=== PATIENT | female | born 1945 | race Caucasian/White ===

== ENCOUNTER 2016-05-11 17:09 | Emergency (ER) | payer OTHER ==
[~2016-05-11] VITALS: Ht 165.1 cm; Wt 70.0 kg
[~2016-05-11 17:09] MED LIST: AMLO5TAB22 PO; ASPI81TA82 PO; CYAN1000P IM; IBUP800T23 PO; LIDO2GEL12 TOP; NEUR600T PO; PENT400 PO; PERC10TA27 PO; PLAV75TA PO; RANI150T PO; REST30CA PO; SIMV1TAB76 PO; UNKNOWN MEDS; [UNRECOGNIZED DRUG - SUPPLY] XX
[2016-05-11 18:05] VITALS: BP_SYST 107; BP_SYST 190; BP_DIAS 62; BP_DIAS 88; PULSE 108; RESP 16; TEMP 97.3; O2SAT 97
--- NOTE | 2016-05-11 18:17 | PD ---
HPI Chief Complaint: Syncope Time Seen by Provider: 18:17 Travel History International Travel<30 days: No Contact w/Intl Traveler<30days: No Traveled to known affect area: No History of Present Illness HPI 70-year-old female presents the emergency department with near syncopal event with onset nausea, vomiting, uncontrolled diarrhea. Patient is noted to have generalized erythematous rash as well. Patient states no difficulty swallowing or breathing. She denies chest discomfort or wheezing. Patient does state that she had a banana with peanut butter and chocolate whip approximately one hour prior to the symptoms starting. Patient has no history of previous food allergy in the past. Patient has chills at this time but denies fever. She has no headache sore throat or other symptoms. Patient is known to take Plavix for circulatory issues in the lower extremities within arterial stent in the left. She has no known drug allergies. PFSH Past Medical History High Cholesterol: Yes Hypertension: Yes Social History Alcohol Use: Yes Tobacco Use: Yes Substance Use: No Allergies-Medications (Allergen,Severity, Reaction): Coded Allergies: No Known Allergies (Unverified , 08/27/15) Reported Meds & Prescriptions Reported Meds & Active Scripts Active Reported Zocor (Simvastatin) 5 Mg Tab 5 Mg PO DAILY Aspirin 81 (Aspirin) 81 Mg Tabdr 81 Mg PO DAILY Amlodipine (Amlodipine Besylate) 10 Mg Tab 10 Mg PO DAILY Plavix (Clopidogrel Bisulfate) 75 Mg Tab 75 Mg PO DAILY Review of Systems Except as stated in HPI: all other systems reviewed are Neg General / Constitutional: Positive: Chills, No: Fever Eyes: No: Visual changes HENT: No: Headaches, Sore Throat, Rhinitis, Rhinorrhea, Congestion, Neck Stiffness, Neck Pain, Earache Cardiovascular: No: Chest Pain or Discomfort Respiratory: No: Shortness of Breath Gastrointestinal: Positive: Nausea, Vomiting, Diarrhea, No: Abdominal Pain, Hematemesis, Hematochezia, Constipation, Changes in Bowel Habits, Loss of Appetite Genitourinary: No: Dysuria Musculoskeletal: No: Pain Skin: Positive Rash, No Itching Neurologic: No: Weakness Psychiatric: No: Depression Endocrine: No: Polydipsia Hematologic/Lymphatic: No: Easy Bruising Physical Exam Narrative GENERAL: Patient appears in moderate distress SKIN: Warm and dry. Patient has generalized erythematous flushing without hives consistent with allergic reaction. Patient is to have a large bruise to the right upper arm which she states is due to her Plavix HEAD: Atraumatic. Normocephalic. EYES: Pupils equal and round. No scleral icterus. No injection or drainage. ENT: No nasal bleeding or discharge. Mucous membranes pink and moist. Pharynx appears normal with no swelling. Airway is patent. NECK: Trachea midline. No JVD. Supple and nontender. CARDIOVASCULAR: Regular rate and rhythm. RESPIRATORY: No accessory muscle use. Clear to auscultation. Breath sounds equal bilaterally. GASTROINTESTINAL: Abdomen soft, mild nonspecific tenderness, nondistended. Bowel sounds are present in all quadrants and somewhat hyperactive. Hepatic and splenic margins not palpable. No CVA tenderness. MUSCULOSKELETAL: Extremities without clubbing, cyanosis, or edema. No obvious deformities. NEUROLOGICAL: Awake and alert. No obvious cranial nerve deficits. Motor grossly within normal limits. Five out of 5 muscle strength in the arms and legs. Normal speech. PSYCHIATRIC: Appropriate mood and affect; insight and judgment normal. Data Data Last Documented VS Vital Signs Date Time Temp Pulse Resp B/P Pulse Ox O2 Delivery O2 Flow Rate FiO2 05/11/16 19:43 96 16 160/67 96 Room Air 05/11/16 18:05 97.3 Orders Complete Blood Count With Diff (05/11/16 18:33) Comprehensive Metabolic Panel (05/11/16 18:33) Lipase (05/11/16 18:33) Prothrombin Time / Inr (Pt) (05/11/16 18:33) Act Partial Throm Time (Ptt) (05/11/16 18:33) Urinalysis - C+S If Indicated (05/11/16 18:33) Abdomen, Flat & Upright (05/11/16 ) Iv Access Insert/Monitor (05/11/16 18:33) Ecg Monitoring (05/11/16 18:33) Oximetry (05/11/16 18:33) NPO (05/11/16 18:33) Ondansetron Inj (Zofran Inj) (05/11/16 18:45) Sodium Chlor 0.9% 1000 Ml Inj (Ns 1000 M (05/11/16 18:33) Sodium Chloride 0.9% Flush (Ns Flush) (05/11/16 18:45) Electrocardiogram (05/11/16 18:33) Famotidine Inj (Pepcid Inj) (05/11/16 18:45) Diphenhydramine Inj (Benadryl Inj) (05/11/16 18:45) Methylprednisolone So Succ Inj (Solumedr (05/11/16 19:30) Labs Laboratory Tests Test 05/11/16 18:35 White Blood Count 16.7 TH/MM3 Red Blood Count 4.44 MIL/MM3 Hemoglobin 12.6 GM/DL Hematocrit 37.9 % Mean Corpuscular Volume 85.3 FL Mean Corpuscular Hemoglobin 28.4 PG Mean Corpuscular Hemoglobin 33.3 % Concent Red Cell Distribution Width 13.1 % Platelet Count 272 TH/MM3 Mean Platelet Volume 8.0 FL Neutrophils (%) (Auto) 91.3 % Lymphocytes (%) (Auto) 6.7 % Monocytes (%) (Auto) 1.5 % Eosinophils (%) (Auto) 0.3 % Basophils (%) (Auto) 0.2 % Neutrophils # (Auto) 15.2 TH/MM3 Lymphocytes # (Auto) 1.1 TH/MM3 Monocytes # (Auto) 0.3 TH/MM3 Eosinophils # (Auto) 0.0 TH/MM3 Basophils # (Auto) 0.0 TH/MM3 CBC Comment DIFF FINAL Differential Comment Prothrombin Time 10.8 SEC Prothromb Time International 1.0 RATIO Ratio Activated Partial 27.8 SEC Thromboplast Time Sodium Level 139 MEQ/L Potassium Level 3.2 MEQ/L Chloride Level 105 MEQ/L Carbon Dioxide Level 24.9 MEQ/L Anion Gap 9 MEQ/L Blood Urea Nitrogen 27 MG/DL Creatinine 1.20 MG/DL Estimat Glomerular Filtration 44 ML/MIN Rate Random Glucose 161 MG/DL Calcium Level 8.8 MG/DL Total Bilirubin 0.4 MG/DL Aspartate Amino Transf 17 U/L (AST/SGOT) Alanine Aminotransferase 22 U/L (ALT/SGPT) Alkaline Phosphatase 91 U/L Total Protein 7.2 GM/DL Albumin 3.5 GM/DL Lipase 155 U/L [facility] Medical Decision Making Medical Screen Exam Complete: Yes Emergency Medical Condition: Yes Differential Diagnosis Acute nausea and vomiting. Allergic reaction. Histamine reaction. Narrative Course Patient is medically stable at time of exam. Labs ordered including CBC, CMP, PT PTT and INR. Patient is discussed with Dr. Najera sees the patient as well. IV access is obtained and the patient is given thousand and also normal saline bolus, 4 mg Zofran IV, 25 mg diphenhydramine IV, 20 mg Pepcid IV, and 125 mg Solu-Medrol. EKG shows a normal sinus rhythm. Abdominal x-ray showed no acute process per radiologist. Labs are unremarkable except for leukocytosis of 16.7, potassium is 3.2. BUN of 27 and creatinine of 1.20. 2050 hrs. patient is reassessed and felt to be much improved. Patient is given 40 mEq potassium by mouth. Patient will be discharged home on prednisone 20 mg twice a day 5 days. Patient also given Zantac 150 mg twice a day #20. Patient can also take Benadryl 25 mg every 6 hours when necessary. Patient is to rest and follow with her primary care physician as discussed. Diagnosis Primary Impression: Allergic reaction Qualified Code: T78.40XA - Allergic reaction, initial encounter Additional Impressions: Nausea and vomiting in adult Low serum potassium level Referrals: Primary Care Physician Patient Instructions: Acute Nausea and Vomiting (ED), General Allergic Reaction (ED), General Instructions Additional Instructions: 2050 hrs. patient is reassessed and felt to be much improved. Patient is given 40 mEq potassium by mouth. Patient will be discharged home on prednisone 20 mg twice a day 5 days. Patient also given Zantac 150 mg twice a day #20. Patient can also take Benadryl 25 mg every 6 hours when necessary. Patient is to rest and follow with her primary care physician as discussed. Med/Other Pt SpecificInfo: Prescription(s) given Disposition: DISCHARGE HOME Condition: Stable Baljinder Castillo May 11, 2016 18:17
[2016-05-11] MEDS ORDERED: PLAV75TA29 PO (18:23)
[2016-05-11] MEDS ORDERED: ZOCO5TAB PO (18:23)
[2016-05-11] MEDS ORDERED: ASPI-110 PO (18:23)
[2016-05-11] MEDS ORDERED: AMLO10TA2 PO (18:23)
[2016-05-11] MEDS ORDERED: SODIUM CHLOR 0.9% 1000 ML INJ 1,000 ML IV SCH (18:33)
[2016-05-11] MEDS ORDERED: SODIUM CHLORIDE 0.9% FLUSH 10 ML FLUSH IV FLUSH PRN (18:45)
[2016-05-11] MEDS ORDERED: diphenhydrAMINE HCL 50 MG/ML VIAL IV PUSH ONE (18:45)
[2016-05-11] MEDS ORDERED: FAMOTIDINE 20 MG/2 ML VIAL IV PUSH ONE (18:45)
[2016-05-11] MEDS ORDERED: ONDANSETRON HCL 4 MG/2 ML VIAL IVP ONE (18:45)
[2016-05-11 19:00] LABS: AUTOMATED NEUTROPHIL # 15.2 TH/MM3 (1.8-7.7); BASOPHIL % 0.2 % (0.0-2.0); EOSINOPHIL % 0.3 % (0.0-4.0); HEMATOCRIT 37.9 % (35.0-46.0); HEMO FLAGS DIFF FINAL; LYMPH % 6.7 % (9.0-44.0); LYMPHOCYTE # 1.1 TH/MM3 (1.0-4.8); MEAN CELL VOLUME 85.3 FL (80.0-100.0); MEAN CORPUSCULAR HEMOGLOBIN 28.4 PG (27.0-34.0); MEAN CORPUSCULAR HGB CONC 33.3 % (32.0-36.0); MONO % 1.5 % (0.0-8.0); NEUT % 91.3 % (16.0-70.0); PLATELET COUNT 272 TH/MM3 (150-450); RED BLOOD COUNT 4.44 MIL/MM3 (4.00-5.30); RED CELL DISTRIBUTION WIDTH 13.1 % (11.6-17.2); WHITE BLOOD COUNT 16.7 TH/MM3 (4.0-11.0)
[2016-05-11 19:17] LABS: APTT (PATIENT) 27.8 SEC (24.3-30.1); PROTHROMBIN TIME - PATIENT 10.8 SEC (9.8-11.6)
[2016-05-11 19:21] LABS: ANION GAP 9 MEQ/L (5-15); AST (GOT) 17 U/L (15-37); BICARBONATE 24.9 MEQ/L (21.0-32.0); BLOOD UREA NITROGEN 27 MG/DL (7-18); CHLORIDE 105 MEQ/L (98-107); GLOMERULAR FILTRATION RATE 44 ML/MIN (>89); POTASSIUM 3.2 MEQ/L (3.5-5.1); SODIUM (NA) 139 MEQ/L (136-145)
--- NOTE | 2016-05-11 19:23 | PD ---
Physical Exam Narrative Patient was seen and examined with my assistant teacher. Data Data Last Documented VS Vital Signs Date Time Temp Pulse Resp B/P Pulse Ox O2 Delivery O2 Flow Rate FiO2 05/11/16 18:05 97.3 108 16 190/88 97 Orders Complete Blood Count With Diff (05/11/16 18:33) Comprehensive Metabolic Panel (05/11/16 18:33) Lipase (05/11/16 18:33) Prothrombin Time / Inr (Pt) (05/11/16 18:33) Act Partial Throm Time (Ptt) (05/11/16 18:33) Urinalysis - C+S If Indicated (05/11/16 18:33) Abdomen, Flat & Upright (05/11/16 ) Iv Access Insert/Monitor (05/11/16 18:33) Ecg Monitoring (05/11/16 18:33) Oximetry (05/11/16 18:33) NPO (05/11/16 18:33) Ondansetron Inj (Zofran Inj) (05/11/16 18:45) Sodium Chlor 0.9% 1000 Ml Inj (Ns 1000 M (05/11/16 18:33) Sodium Chloride 0.9% Flush (Ns Flush) (05/11/16 18:45) Electrocardiogram (05/11/16 18:33) Famotidine Inj (Pepcid Inj) (05/11/16 18:45) Diphenhydramine Inj (Benadryl Inj) (05/11/16 18:45) Methylprednisolone So Succ Inj (Solumedr (05/11/16 19:30) Labs Laboratory Tests Test 05/11/16 18:35 White Blood Count 16.7 TH/MM3 Red Blood Count 4.44 MIL/MM3 Hemoglobin 12.6 GM/DL Hematocrit 37.9 % Mean Corpuscular Volume 85.3 FL Mean Corpuscular Hemoglobin 28.4 PG Mean Corpuscular Hemoglobin 33.3 % Concent Red Cell Distribution Width 13.1 % Platelet Count 272 TH/MM3 Mean Platelet Volume 8.0 FL Neutrophils (%) (Auto) 91.3 % Lymphocytes (%) (Auto) 6.7 % Monocytes (%) (Auto) 1.5 % Eosinophils (%) (Auto) 0.3 % Basophils (%) (Auto) 0.2 % Neutrophils # (Auto) 15.2 TH/MM3 Lymphocytes # (Auto) 1.1 TH/MM3 Monocytes # (Auto) 0.3 TH/MM3 Eosinophils # (Auto) 0.0 TH/MM3 Basophils # (Auto) 0.0 TH/MM3 CBC Comment DIFF FINAL Differential Comment Prothrombin Time 10.8 SEC Prothromb Time International 1.0 RATIO Ratio Activated Partial 27.8 SEC Thromboplast Time Sodium Level 139 MEQ/L Potassium Level 3.2 MEQ/L Chloride Level 105 MEQ/L Carbon Dioxide Level 24.9 MEQ/L Anion Gap 9 MEQ/L Blood Urea Nitrogen 27 MG/DL Creatinine 1.20 MG/DL Estimat Glomerular Filtration 44 ML/MIN Rate Random Glucose 161 MG/DL Calcium Level 8.8 MG/DL Aspartate Amino Transf 17 U/L (AST/SGOT) Albumin 3.5 GM/DL Lipase 155 U/L MDM Supervised Visit with PAL: Yes Vinicio Kingsley MD May 11, 2016 19:23
--- NOTE | 2016-05-11 19:24 | RADRPT ---
EXAM DATE/TIME: 05/11/2016 18:53 [facility] COMPARISON: No previous studies available for comparison. INDICATIONS : Patient has had abdominal pain for two days. MEDICAL HISTORY : None. SURGICAL HISTORY : Breast implants. ENCOUNTER: Initial ACUITY: 2 days PAIN SCORE: 0/10 LOCATION: Abdomen. FINDINGS: Supine and upright views of the abdomen were performed. The abdominal bowel gas pattern is normal. No air fluid levels are seen. Aorta is atherosclerotic and tortuous. Capsular calcifications noted ar ound breast implants. Remote left rib fractures. CONCLUSION: 1. No acute findings. Espinoza Burnette MD on May 11, 2016 at 19:22 Board Certified Radiologist. This report was verified electronically.
[2016-05-11 19:25] LABS: ALKALINE PHOSPHATASE 91 U/L (45-117); ALT (GPT) 22 U/L (10-53); TOTAL BILIRUBIN ADULT 0.4 MG/DL (0.2-1.0)
[2016-05-11] MEDS ORDERED: methylPREDNISolone SOD SUCC 125 MG/2 ML VIAL IV PUSH ONE (19:30)
[2016-05-11 19:42] VITALS: RESP 17; O2SAT 96
[2016-05-11 19:43] VITALS: BP 160/67; PULSE 96; RESP 16; O2SAT 96
[2016-05-11 20:30] VITALS: BP 133/61; PULSE 90; RESP 25; O2SAT 96
[2016-05-11] MEDS ORDERED: ZANT150T2 PO (20:59)
[2016-05-11] MEDS ORDERED: PRED20 PO (20:59)
[2016-05-11] MEDS ORDERED: POTASSIUM CHLORIDE 20 MEQ CONTROLLED RELEASE TAB PO ONE (21:00)
[2016-05-11 21:30] VITALS: BP 138/74; PULSE 90; RESP 24; O2SAT 97
--- NOTE | 2016-05-13 11:12 | EKG ---
Date Performed: 05/11/2016 Time Performed: 19:40:21 PTAGE: 70 years EKG: Sinus rhythm NORMAL ECG NO PREVIOUS TRACING DOCTOR: Ajit Carson Interpretating Date/Time 05/13/2016 11:07:47
== END 2016-05-11 22:05 | disposition home or self-care (01) ==
LOC: NEPE 17:09
DX: T78.40XA Allergy, unspecified, initial encounter (principal); R11.2 Nausea with vomiting, unspecified; I10 Essential (primary) hypertension; Z72.0 Tobacco use; Z79.02 Long term (current) use of antithrombotics/antiplatelets; X58.XXXA Exposure to other specified factors, initial encounter
CPT/HCPCS: 74020; 80053; 83690; 85025; 85610; 85730; 93005; 96361; 96374; 96375; 99284; J1200; J2405; J2930; J7030

== ENCOUNTER 2017-07-17 12:52 | Observation (INO) | payer OTHER ==
[~2017-07-17] VITALS: Ht 165.1 cm; Wt 70.0 kg
[~2017-07-17 12:52] MED LIST changes: +AMLO10TA2 PO; -AMLO5TAB22 PO; +ASPI1TAB57 PO; -ASPI81TA82 PO; -CYAN1000P IM; -IBUP800T23 PO; -LIDO2GEL12 TOP; -NEUR600T PO; -PENT400 PO; -PERC10TA27 PO; -PLAV75TA PO; +PLAV75TA29 PO; +PRED20 PO; -RANI150T PO; -REST30CA PO; -SIMV1TAB76 PO; -UNKNOWN MEDS; +ZANT150T2 PO; +ZOCO5TAB PO; -[UNRECOGNIZED DRUG - SUPPLY] XX
[2017-07-17 13:38] VITALS: BP 113/67; PULSE 100; RESP 20; TEMP 97.2; O2SAT 100
--- NOTE | 2017-07-17 13:47 | PD ---
HPI Chief Complaint: Cold / Flu Symptoms Time Seen by Provider: 13:45 Travel History International Travel<30 days: No Contact w/Intl Traveler<30days: No Traveled to known affect area: No History of Present Illness HPI 71-year-old female came to the emergency room with her daughter sent from her primary care's office for history of lightheadedness and dizziness when she stands up too quickly. Patient is getting worked up for anemia and has an appointment today with the drainlayer Dr. Swann. However after she went to see her primary care today with these complaints apparently in the office they found her heart rate to be fast and hence they sent her to the emergency room instead. Patient says that Dr. Palmer had ordered some blood work which has been done but they were going to see him today to discuss the results. No history of chest pain. She does have some cough that her primary care is trying to address. Vital signs were relatively stable. Patient has not noticed any blood in her stool or urine. Patient is on one baby aspirin a day and Plavix. [facility] Past Medical History Narrative Medical List of her past medical, surgical, social and family history reviewed from the nursing note High Cholesterol: Yes Hypertension: Yes ?: Not Social History Alcohol Use: Yes Tobacco Use: Yes Substance Use: No Allergies-Medications (Allergen,Severity, Reaction): Coded Allergies: No Known Allergies (Unverified Allergy, Unknown, 07/17/17) Comments No known drug allergies. Reported Meds & Prescriptions Reported Meds & Active Scripts Active Reported Zocor (Simvastatin) 5 Mg Tab 5 Mg PO DAILY Aspirin 81 (Aspirin) 81 Mg Tabdr 81 Mg PO DAILY Amlodipine (Amlodipine Besylate) 10 Mg Tab 10 Mg PO DAILY Plavix (Clopidogrel Bisulfate) 75 Mg Tab 75 Mg PO DAILY Narrative Medication List of her home medications reviewed from the nursing note Review of Systems Except as stated in HPI: all other systems reviewed are Neg Neurologic: Positive: Dizziness Physical Exam Narrative GENERAL: Awake, alert, no obvious distress SKIN: Focused skin assessment warm/dry. Pale HEAD: Atraumatic. Normocephalic. EYES: Pupils equal and round. No scleral icterus. No injection or drainage. ENT: No nasal bleeding or discharge. Mucous membranes pink and moist. NECK: Trachea midline. No JVD. CARDIOVASCULAR: Regular rate and rhythm. No murmur appreciated. RESPIRATORY: No accessory muscle use. Clear to auscultation. Breath sounds equal bilaterally. GASTROINTESTINAL: Abdomen soft, non-tender, nondistended. Hepatic and splenic margins not palpable. MUSCULOSKELETAL: No obvious deformities. No clubbing. No cyanosis. No edema. NEUROLOGICAL: Awake and alert. No obvious cranial nerve deficits. Motor grossly within normal limits. Normal speech. PSYCHIATRIC: Appropriate mood and affect; insight and judgment normal. Data Data Last Documented VS Vital Signs Date Time Temp Pulse Resp B/P (MAP) Pulse Ox O2 Delivery O2 Flow Rate FiO2 07/17/17 14:51 97 Room Air 07/17/17 14:39 86 101 107 07/17/17 13:38 97.2 20 Orders Orders Basic Metabolic Panel (Bmp) (07/17/17 14:03) Complete Blood Count With Diff (07/17/17 14:03) Prothrombin Time / Inr (Pt) (07/17/17 14:03) Type And Screen (07/17/17 14:03) Ecg Monitoring (07/17/17 14:03) Iv Access Insert/Monitor (07/17/17 14:03) Oximetry (07/17/17 14:03) Sodium Chloride 0.9% Flush (Ns Flush) (07/17/17 14:15) Orthostatic Vital Signs (07/17/17 14:03) Sodium Chlor 0.9% 1000 Ml Inj (Ns 1000 M (07/17/17 15:00) Pantoprazole Inj (Protonix Inj) (07/17/17 15:30) Sodium Chloride 0.9... W/Pantoprazole In (07/17/17 16:36) Admit Order (Ed Use Only) (07/17/17 16:03) Labs Laboratory Tests Test 07/17/17 14:20 White Blood Count 8.0 TH/MM3 Red Blood Count 3.92 MIL/MM3 Hemoglobin 8.8 GM/DL Hematocrit 28.0 % Mean Corpuscular Volume 71.4 FL Mean Corpuscular Hemoglobin 22.4 PG Mean Corpuscular Hemoglobin Concent 31.4 % Red Cell Distribution Width 17.6 % Platelet Count 417 TH/MM3 Mean Platelet Volume 7.5 FL Neutrophils (%) (Auto) 71.9 % Lymphocytes (%) (Auto) 13.4 % Monocytes (%) (Auto) 10.7 % Eosinophils (%) (Auto) 3.0 % Basophils (%) (Auto) 1.0 % Neutrophils # (Auto) 5.8 TH/MM3 Lymphocytes # (Auto) 1.1 TH/MM3 Monocytes # (Auto) 0.9 TH/MM3 Eosinophils # (Auto) 0.2 TH/MM3 Basophils # (Auto) 0.1 TH/MM3 CBC Comment DIFF FINAL Differential Comment Prothrombin Time 10.0 SEC Prothromb Time International Ratio 1.0 RATIO Blood Urea Nitrogen 17 MG/DL Creatinine 1.04 MG/DL Random Glucose 93 MG/DL Calcium Level 9.4 MG/DL Sodium Level 137 MEQ/L Potassium Level 4.6 MEQ/L Chloride Level 104 MEQ/L Carbon Dioxide Level 21.8 MEQ/L Anion Gap 11 MEQ/L Estimat Glomerular Filtration Rate 52 ML/MIN Iron Level 23 MCG/DL Total Iron Binding Capacity 543 MCG/DL Percent Iron Saturation 4.2 % Ferritin 8 NG/ML MDM Medical Decision Making Medical Screen Exam Complete: Yes Emergency Medical Condition: Yes Medical Record Reviewed: Yes Differential Diagnosis Anemia, GI bleed, symptomatic anemia Narrative Course 3:04 PM blood test results are back. Hemoglobin and hematocrit are not low enough indicating transfusion. Orthostasis was positive. Please refer to the nurse's documentation on that. I have ordered 1 L of IV fluid bolus. I put a call out for her drainlayer Dr. Swann. Awaiting to discuss this with him. 3:20 PM I did a stool Hemoccult which is positive. Based on this I have called the GI specialist. I discussed this with the patient and her daughter and made him understand that this could be the reason why her hemoglobin is dropping and she is becoming symptomatic. Patient says she cannot be off Plavix as per her vascular surgeon Dr. Sheehan. Under the circumstances in my opinion patient should be admitted and get endoscopy done in the hospital. I will discuss this with the GI specialist. 3:35 PM case was discussed with Dr. Swann and he agreed with GI consultation and possible admission. Awaiting for GI to call back. Procedures EKG Prior to Arrival: No HemaPrompt Point of Care Internal Pos. & Neg. Controls: Passed Fecal Specimen Occult Blood: Positive Diagnosis Primary Impression: Symptomatic anemia Additional Impression: GI bleed Qualified Codes: K92.2 - Gastrointestinal hemorrhage, unspecified Admitting Information Admitting Physician Requests: Observation Scripts Ferrous Sulfate (Ferrous Sulfate) 325 Mg (65 Mg Iron) Tablet 325 MG PO BIDPC for Nutritional Supplement, #60 TAB 0 Refills Prov: Alma Saeed PA-C 07/19/17 Pantoprazole (Pantoprazole) 40 Mg Tab 40 MG PO DAILY for gastritis for 30 Days, #30 TAB Prov: Alma Saeed PA-C 07/19/17 Landon Champion MD July 17, 2017 13:47
[2017-07-17] MEDS ORDERED: SODIUM CHLORIDE 0.9% FLUSH 10 ML FLUSH IVF PRN (14:15)
[2017-07-17 14:39] VITALS: BP_SYST 131; BP_SYST 140; BP_DIAS 57; BP_DIAS 67
[2017-07-17 14:45] LABS: AUTOMATED NEUTROPHIL # 5.8 TH/MM3 (1.8-7.7); BASOPHIL # 0.1 TH/MM3 (0-0.2); EOSINOPHIL # 0.2 TH/MM3 (0-0.4); HEMOGLOBIN 8.8 GM/DL (11.6-15.3); LYMPH % 13.4 % (9.0-44.0); LYMPHOCYTE # 1.1 TH/MM3 (1.0-4.8); MEAN CELL VOLUME 71.4 FL (80.0-100.0); MEAN CORPUSCULAR HEMOGLOBIN 22.4 PG (27.0-34.0); MEAN CORPUSCULAR HGB CONC 31.4 % (32.0-36.0); MEAN PLATELET VOLUME 7.5 FL (7.0-11.0); MONO % 10.7 % (0.0-8.0); MONOCYTE # 0.9 TH/MM3 (0-0.9); NEUT % 71.9 % (16.0-70.0); PLATELET COUNT 417 TH/MM3 (150-450); RED BLOOD COUNT 3.92 MIL/MM3 (4.00-5.30); RED CELL DISTRIBUTION WIDTH 17.6 % (11.6-17.2)
[2017-07-17 14:51] VITALS: O2SAT 97
[2017-07-17 14:59] LABS: BICARBONATE 21.8 MEQ/L (21.0-32.0); CALCIUM 9.4 MG/DL (8.5-10.1); CREATININE 1.04 MG/DL (0.50-1.00)
[2017-07-17] MEDS ORDERED: SODIUM CHLOR 0.9% 1000 ML INJ 1,000 ML IV ONE (15:00)
[2017-07-17] MEDS ORDERED: PANTOPRAZOLE SODIUM 40 MG VIAL IV PUSH ONE (15:30)
--- NOTE | 2017-07-17 16:14 | HHI.HP ---
[facility] Teddy Bryant MD Admission Diagnosis Symptomatic anemia, GI bleed Diagnoses: Chief Complaint: generalized weakness Travel History International Travel<30 Days: No Contact w/Intl Traveler <30 Da: No Traveled to Known Affected Are: No History of Present Illness This is a 71 year old F with PMH significant for PAD S/P femoral stent x 2, GERD , HTN, Vitamin D deficiency and iron deficiency. Pt went to see her PCP today complaining of dizziness and light headedness worse with position changes and she was sent to the ER for further work up. Our service has been consulted to evaluate patient for bedside Hemoccult stool which is positive and symptomatic anemia with positive orthostatic vital signs in ER. Pt denies history of anemia , however was told by her PCP a few weeks ago to start taking iron supplements which she has not done. Of note, pt had a consultation with Dr. Preciado today, but states this was to be evaluated for a work up of possibly having a hypercoagulable process. She is concerned about this due to history of femoral stent being occluded in the past. Pt currently on Plavix and ASA for this. Pt denies an obvious GIB. Denies nausea, vomiting, constipation, diarrhea. Reports some issues with acid reflux but generally well controlled with Pantoprazole and Ranitidine at home. Also complaining of an occasional knot like sensation in her epigastric area that seems to be aggravated with certain movement. Also notes some abdominal bloating after meals, unsure if it is related to specific foods. Denies previous EGD. States colonoscopy 4-5 years ago in [place] was normal. Reports ETOH, less than once a week. Smokes E- cigarettes. Denies NSAID use. Review of Systems Except as stated in HPI: all other systems reviewed are Neg Past Family Social History Past Medical History PAD with stent placed by Dr Sheehan GERD HTN Vitamin D deficiency Iron deficiency Past Surgical History Colonoscopy L leg stent Cataract removal Reported Medications Reported Meds & Active Scripts Active Reported Zocor (Simvastatin) 5 Mg Tab 5 Mg PO DAILY Aspirin 81 (Aspirin) 81 Mg Tabdr 81 Mg PO DAILY Amlodipine (Amlodipine Besylate) 10 Mg Tab 10 Mg PO DAILY Plavix (Clopidogrel Bisulfate) 75 Mg Tab 75 Mg PO DAILY Allergies: Coded Allergies: No Known Allergies (Unverified Allergy, Unknown, 07/17/17) Family History HTN runs in family Social History ETOH- less than once a week Smokes E-cigarettes Physical Exam Vital Signs Vital Signs Date Time Temp Pulse Resp B/P (MAP) Pulse Ox O2 Delivery O2 Flow Rate FiO2 07/17/17 14:51 97 Room Air 07/17/17 14:39 86 140/67 (91) 101 144/70 (94) 107 131/57 (81) 07/17/17 13:38 97.2 100 20 113/67 (82) 100 Physical Exam GENERAL: This is a pleasant 71 yo F well-nourished, well-developed patient, in no apparent distress. SKIN: No rashes, ecchymoses or lesions. Cool and dry. HEAD: Atraumatic. Normocephalic. No temporal or scalp tenderness. EYES: Pupils equal round and reactive. Extraocular motions intact. No scleral icterus. No injection or drainage. ENT: Nose without bleeding, purulent drainage or septal hematoma. Throat without erythema, tonsillar hypertrophy or exudate. Uvula midline. Airway patent. NECK: Trachea midline. No JVD or lymphadenopathy. Supple, nontender, no meningeal signs. CARDIOVASCULAR: Regular rate and rhythm without murmurs, gallops, or rubs. RESPIRATORY: Clear to auscultation. Breath sounds equal bilaterally. No wheezes , rales, or rhonchi. GASTROINTESTINAL: Abdomen soft, non-tender, nondistended. No hepato-splenomegaly , or palpable masses. No guarding. MUSCULOSKELETAL: Extremities without clubbing, cyanosis, or edema. No joint tenderness, effusion, or edema noted. No calf tenderness. Negative Homans sign bilaterally. NEUROLOGICAL: Awake and alert. Cranial nerves II through XII intact. Motor and sensory grossly within normal limits. Five out of 5 muscle strength in all muscle groups. Normal speech. Laboratory Laboratory Tests Test 07/17/17 14:20 White Blood Count 8.0 Red Blood Count 3.92 Hemoglobin 8.8 Hematocrit 28.0 Mean Corpuscular Volume 71.4 Mean Corpuscular Hemoglobin 22.4 Mean Corpuscular Hemoglobin Concent 31.4 Red Cell Distribution Width 17.6 Platelet Count 417 Mean Platelet Volume 7.5 Neutrophils (%) (Auto) 71.9 Lymphocytes (%) (Auto) 13.4 Monocytes (%) (Auto) 10.7 Eosinophils (%) (Auto) 3.0 Basophils (%) (Auto) 1.0 Neutrophils # (Auto) 5.8 Lymphocytes # (Auto) 1.1 Monocytes # (Auto) 0.9 Eosinophils # (Auto) 0.2 Basophils # (Auto) 0.1 CBC Comment DIFF FINAL Differential Comment Prothrombin Time 10.0 Prothromb Time International Ratio 1.0 Blood Urea Nitrogen 17 Creatinine 1.04 Random Glucose 93 Calcium Level 9.4 Sodium Level 137 Potassium Level 4.6 Chloride Level 104 Carbon Dioxide Level 21.8 Anion Gap 11 Estimat Glomerular Filtration Rate 52 Result Diagram: 07/17/17 14207/17/171419 Caprini VTE Risk Assessment Caprini VTE Risk Assessment: Mod/High Risk (score >= 2) VTE Pharm Contraindication: Hemorrhage Caprini Risk Assessment Model Point Value = 1 Point Value = 2 Point Value = 3 Point Value = 5 Age 41-60 Minor surgery BMI > 25 kg/m2 Swollen legs Varicose veins or History of unexplained or recurrent spontaneous Oral contraceptives or hormone replacement Sepsis (< 1 month) Serious lung disease, including pneumonia (< 1 month) Abnormal pulmonary function Acute myocardial infarction Congestive heart failure (< 1 month) History of inflammatory bowel disease Medical patient at bed rest Age 61-74 Arthroscopic surgery Major open surgery (> 45 min) Laparoscopic surgery (> 45 min) Malignancy Confined to bed (> 72 hours) Immobilizing plaster cast Central venous access Age >= 75 History of VTE Family history of VTE Factor V Leiden Prothrombin [id number] Lupus anticoagulant Anticardiolipin antibodies Elevated serum homocysteine Heparin-induced thrombocytopenia Other congenital or acquired thrombophilia Stroke (< 1 month) Elective arthroplasty Hip, pelvis, or leg fracture Acute spinal cord injury (< 1 month) Prophylaxis Regimen Total Risk Factor Score Risk Level Prophylaxis Regimen 0-1 Low Early ambulation 2 Moderate Order ONE of the following: *Sequential Compression Device (SCD) *Heparin 5000 units SQ BID 3-4 Higher Order ONE of the following medications: *Heparin 5000 units SQ TID *Enoxaparin/Lovenox 40 mg SQ daily (WT < 150 kg, CrCl > 30 mL/min) *Enoxaparin/Lovenox 30 mg SQ daily (WT < 150 kg, CrCl > 10-29 mL/min) *Enoxaparin/Lovenox 30 mg SQ BID (WT < 150 kg, CrCl > 30 mL/min) AND/OR *Sequential Compression Device (SCD) 5 or more Highest Order ONE of the following medications: *Heparin 5000 units SQ TID (Preferred with Epidurals) *Enoxaparin/Lovenox 40 mg SQ daily (WT < 150 kg, CrCl > 30 mL/min) *Enoxaparin/Lovenox 30 mg SQ daily (WT < 150 kg, CrCl > 10-29 mL/min) *Enoxaparin/Lovenox 30 mg SQ BID (WT < 150 kg, CrCl > 30 mL/min) AND *Sequential Compression Device (SCD) Assessment and Plan Assessment and Plan 71 yo F with h/o recent fem stent placement by Dr Sheehan and occulsion of the stenf currently on ASA and plavix came with weakness and anemia, FOBT positive in ED. Anemia- microcytic, hypochromic with Heme (+) stools done at bedside by ER physician Pt denies history of anemia, however was told by her PCP a few weeks ago to start taking iron supplements which she reports has not been doing. Denies previous blood transfusion. She was refereed to Dr Swann hem/onc for coagulation work up as patien amrit Last colonoscopy 4-5 years ago and states normal exam. Has never had EGD On Plavix and ASA for history of femoral stent- S/P occlusion and second one placed, follows with Dr Sheehan- [address] Sheehan Follows with Dr Swann for Plan for EGD/colonoscopy tomorrow Clear liquids tod GoLytely prep NPO after MN Monitor H/H Iron studies Hold Plavix tonight and tomorrow until after procedure per GI OK for ASA Further recommendations based on clinical course and results of above GI consulted, Dr. Goldman, appreciate recs DVT ppx scd/teds, CI chemica ppx Discussed Condition With pt, family at bedside, ED physician Kenyetta Mcgraw MD July 17, 2017 16:14
[2017-07-17] MEDS ORDERED: METOCLOPRAMIDE HCL 10 MG/2 ML VIAL IV PUSH PRN (16:15)
[2017-07-17] MEDS ORDERED: SODIUM CHLORIDE 0.9% FLUSH 10 ML FLUSH IV FLUSH PRN (16:15)
[2017-07-17] MEDS ORDERED: NALOXONE HCL 0.4 MG/ML AMP IV PUSH PRN (16:15)
[2017-07-17] MEDS ORDERED: BISACODYL 10 MG SUPP RECTAL PRN (16:15)
[2017-07-17] MEDS ORDERED: SENNOSIDES 8.6 MG TAB PO PRN (16:15)
[2017-07-17] MEDS ORDERED: ACETAMINOPHEN 325 MG TAB PO PRN (16:15)
[2017-07-17] MEDS ORDERED: LACTULOSE SYRUP 20 GM/30 ML CUP PO PRN (16:15)
[2017-07-17] MEDS ORDERED: MAGNESIUM HYDROXIDE SUSP 30 ML CUP PO PRN (16:15)
--- NOTE | 2017-07-17 16:19 | PD.CONS ---
HPI History of Present Illness This is a 71 year old F with PMH significant for PAD S/P femoral stent x 2, GERD , HTN, Vitamin D deficiency and iron deficiency. Pt went to see her PCP today complaining of dizziness and light headedness worse with position changes and she was sent to the ER for further work up. Our service has been consulted to evaluate patient for bedside Hemoccult stool which is positive and symptomatic anemia with positive orthostatic vital signs in ER. Pt denies history of anemia , however was told by her PCP a few weeks ago to start taking iron supplements which she has not done. Of note, pt had a consultation with Dr. Preciado today, but states this was to be evaluated for a work up of possibly having a hypercoagulable process. She is concerned about this due to history of femoral stent being occluded in the past. Pt currently on Plavix and ASA for this. Pt denies an obvious GIB. Denies nausea, vomiting, constipation, diarrhea. Reports some issues with acid reflux but generally well controlled with Pantoprazole and Ranitidine at home. Also complaining of an occasional knot like sensation in her epigastric area that seems to be aggravated with certain movement. Also notes some abdominal bloating after meals, unsure if it is related to specific foods. Denies previous EGD. States colonoscopy 4-5 years ago in [place] was normal. Reports ETOH, less than once a week. Smokes E- cigarettes. Denies NSAID use. (Mili Coelho) PFSH Past Medical History PAD GERD HTN Vitamin D deficiency iron deficiency Past Surgical History Colonoscopy L leg stent Cataract removal (Mili Coelho) Coded Allergies: No Known Allergies (Unverified Allergy, Unknown, 07/17/17) Social History ETOH- less than once a week Smokes E-cigarettes (Mili Coelho) Review of Systems Gastrointestinal: COMPLAINS OF: Swelling of Abdomen, Heartburn, DENIES: Abdominal pain, Black stools, Bloody stools, Constipation, Diarrhea, Nausea, Vomiting, Difficulty Swallowing, Odynophagia, Hematemesis (Mili Coelho) GI Exam Vitals I&O Vital Signs Date Time Temp Pulse Resp B/P (MAP) Pulse Ox O2 Delivery O2 Flow Rate FiO2 07/17/17 14:51 97 Room Air 07/17/17 14:39 86 140/67 (91) 101 144/70 (94) 107 131/57 (81) 07/17/17 13:38 97.2 100 20 113/67 (82) 100 Laboratory Test 07/17/17 14:20 White Blood Count 8.0 TH/MM3 Red Blood Count 3.92 MIL/MM3 Hemoglobin 8.8 GM/DL Hematocrit 28.0 % Mean Corpuscular Volume 71.4 FL Mean Corpuscular Hemoglobin 22.4 PG Mean Corpuscular Hemoglobin Concent 31.4 % Red Cell Distribution Width 17.6 % Platelet Count 417 TH/MM3 Mean Platelet Volume 7.5 FL Neutrophils (%) (Auto) 71.9 % Lymphocytes (%) (Auto) 13.4 % Monocytes (%) (Auto) 10.7 % Eosinophils (%) (Auto) 3.0 % Basophils (%) (Auto) 1.0 % Neutrophils # (Auto) 5.8 TH/MM3 Lymphocytes # (Auto) 1.1 TH/MM3 Monocytes # (Auto) 0.9 TH/MM3 Eosinophils # (Auto) 0.2 TH/MM3 Basophils # (Auto) 0.1 TH/MM3 CBC Comment DIFF FINAL Differential Comment Prothrombin Time 10.0 SEC Prothromb Time International Ratio 1.0 RATIO Blood Urea Nitrogen 17 MG/DL Creatinine 1.04 MG/DL Random Glucose 93 MG/DL Calcium Level 9.4 MG/DL Sodium Level 137 MEQ/L Potassium Level 4.6 MEQ/L Chloride Level 104 MEQ/L Carbon Dioxide Level 21.8 MEQ/L Anion Gap 11 MEQ/L Estimat Glomerular Filtration Rate 52 ML/MIN Physical Examination HEENT: Normocephalic; atraumatic CHEST: Even/unlabored CARDIAC: RRR ABDOMEN: Soft, nondistended, nontender; bowel sounds active EXTREMITIES: No clubbing, cyanosis, or edema. SKIN: Pale ANIMAL BIOLOGIST: Alert and oriented times three. (Mili Coelho) Assessment and Plan Plan Assessment: - Anemia- microcytic, hypochromic with Heme (+) stools done at bedside by ER provider Pt denies history of anemia, however was told by her PCP a few weeks ago to start taking iron supplements which she reports has not been doing. Denies previous blood transfusion. Last colonoscopy 4-5 years ago and states normal exam. Has never had EGD Complaining of: Acid reflux (but well controlled with Ranitidine and Protonix at home) Occasional knot sensation in epigastric area worse with certain movements, and abdominal bloating after meals Denies: Nausea, vomiting, abdominal pain, constipation, diarrhea, hematochezia , melena. Risk factors: Occasional ETOH, smokes E-cigarettes On Plavix and ASA for history of femoral stent- S/P occlusion and second one placed [address] Sheehan Plan: EGD/colonoscopy tomorrow Obtain consent Clear liquids today GoLytely prep NPO after MN Monitor H/H Iron studies Hold Plavix tonight and tomorrow until after procedure OK for ASA Further recommendations based on clinical course and results of above Pt has been seen and examined by myself and Dr. Goldman and this note is written on his behalf (Mili Coelho) Physician Comments Seen and examined with SHAHRIAR< no active bleeding reported. Hold Plavix for now. EGD/ Colonoscopy planned. Transfuse as needed. Thank you (Molly Goldman MD) Mili Coelho July 17, 2017 16:19 Molly Goldman MD July 18, 2017 11:30
[2017-07-17 16:59] LABS: % SATURATION IRON PROFILE 4.2 % (20-50); IRON (FE) 23 MCG/DL (50-170); TOTAL IRON BINDING CAPACITY 543 MCG/DL (250-450)
[2017-07-17] MEDS ORDERED: PEG (High)/E-LYTE SOLN 4000 ML BTL PO ONE (17:00)
[2017-07-17 17:02] LABS: FERRITIN 8 NG/ML (8-252)
[2017-07-17] MEDS: SODIUM CHLOR 0.9% 1000 ML INJ 1,000 ML IV SCH (18:36)
[2017-07-17] MEDS: PANTOPRAZOLE INJ 80 MG in SODIUM CHLORIDE 0.9% INJ 100 ML IV SCH (18:36)
[2017-07-17] MEDS: SODIUM CHLORIDE 0.9% FLUSH 10 ML FLUSH IV FLUSH SCH (20:04)
[2017-07-17] MEDS: DOCUSATE SODIUM 50 MG/SENNA 8.6 MG TAB PO SCH (20:04)
[2017-07-17 20:10] VITALS: BP 99/67; PULSE 115; RESP 20; TEMP 96.7; O2SAT 99
[2017-07-17] MEDS ORDERED: CHLORHEXIDINE GLUCONATE 2 % 1 PACK (2 CLOTHS) TOPICAL PRN (22:30)
[2017-07-17] MEDS ORDERED: LACTATED RINGER'S 1000 ML IV PRN (22:30)
[2017-07-17] MEDS ORDERED: POVIDONE IODINE 5% (ANTISEPSIS KIT) 4 APPLICATIONS EACH NARE PRN (22:30)
[2017-07-17] MEDS ORDERED: METOPROLOL TARTRATE 25 MG TAB PO PRN (22:30)
[2017-07-17] MEDS ORDERED: SODIUM CHLORID 0.9% 500 ML IV PRN (22:30)
[2017-07-18] VITALS: BP 119/59; PULSE 95; RESP 18; TEMP 99.9; O2SAT 95
--- NOTE | 2017-07-18 00:32 | MB ---
cc: Don Swann MD DATE: 07/17/2017 REASON FOR CONSULTATION: The patient with severe anemia. HISTORY OF PRESENT ILLNESS: This is a 71-year-old female who has a history of significant peripheral arterial disease, who is on Plavix and aspirin. She was recently referred to hematology clinic for further evaluation. She sees Dr. Sheehan, who is her vascular surgeon. The patient has had arterial thrombosis and peripheral vascular disease involving her left lower extremity. She has never experienced a DVT or pulmonary embolism. She was evaluated in the hematology clinic and hypercoagulable workup was ordered, since the patient was concerned that she may have underlying hypercoagulable state. She also complained of easy bruising, and coags were ordered. She now presents to the emergency department after she was found to be severely anemic by her primary care physician. She also was found to have a positive Hemoccult test. The patient has been admitted to the hospital and a GI consult has been ordered. The patient has not noticed any bright red blood per rectum. She has also not noticed any dark stools. She endorses fatigue. She has never had a previous EGD. She had a colonoscopy a few years ago, and according to the patient, it was normal. She does not consume NSAIDs. She smokes e-cigarettes. She occasionally drinks alcohol. REVIEW OF SYSTEMS: A comprehensive review of system was completed which is negative except as described in HPI. PAST MEDICAL HISTORY: Peripheral arterial disease, GERD, hypertension, vitamin D deficiency, history of iron deficiency. PAST SURGICAL HISTORY: Colonoscopy, lower extremity femoral stent x2, cataract removal. ALLERGIES: NO KNOWN DRUG ALLERGIES. SOCIAL HISTORY: Occasional alcohol intake. She smokes e-cigarettes. No illicit drug use. FAMILY HISTORY: Reviewed and is noncontributory to this visit. MEDICATIONS: Norvasc 10 mg p.o. daily, aspirin 81 mg p.o. daily, Plavix 75 mg p.o. daily, pravastatin 10 mg p.o. daily, metoprolol 25 mg p.o. p.r.n., Danielle-Colace 1 tablet p.o. b.i.d., pantoprazole 80 mg IV q. 10 hours, Tylenol 650 p.o. q. 4 hours p.r.n., metoclopramide 5 mg IV every 6 hours p.r.n., naloxone 0.4 mg IV p.r.n., Senokot 17.2 mg p.o. q. 12 hours p.r.n., bisacodyl 10 mg p.r.n., Lactulose p.r.n. ALLERGIES: NO KNOWN DRUG ALLERGIES. PHYSICAL EXAMINATION: VITAL SIGNS: Blood pressure is 140/69, pulse is in the 100s, temperature is 97.2, blood pressure is 144/70, O2 sats are 100% on room air. GENERAL: Well-developed, well-nourished female, in no apparent distress. HEENT: Pupils are equal, round, reactive to light. EOMI. No oral thrush. No oral lesion. NECK: Supple. No JVD. No bruits. No lymphadenopathy. CHEST: Clear to auscultation bilaterally. CARDIAC: S1, S2. She is tachycardic. ABDOMEN: Soft, nontender, nondistended. Bowel sounds are present. EXTREMITIES: Evidence of chronic peripheral venous stasis. No edema. No cyanosis. No pain. LABORATORY DATA: WBC 8, hemoglobin 8.8, MCV 71.4, platelet count is 417. Serum iron is 23. TIBC is elevated to 543. Serum ferritin is low at 8. Creatinine is 1.04. TSH is 3.39. Abdominal x-ray was reviewed, with no acute findings. ASSESSMENT AND PLAN: This is a 71-year-old female with a history of severe peripheral arterial disease, hypertension, hyperlipidemia, gastroesophageal reflux disease, and anemia, who presents to the emergency room with severe anemia and Hemoccult positive stools. 1. Anemia in the setting of possible gastrointestinal bleeding and Hemoccult positive stools. She is iron deficient. She will benefit from iron infusions. I agree with evaluation by GI to identify any underlying source of gastrointestinal bleeding. 2. History of severe peripheral arterial disease. She has been on Plavix and aspirin. We need to stop these in order for her to receive colonoscopy or EGD. There is no past history of DVT or pulmonary embolism, and thus any anticoagulation is not indicated at this time. She has had a hypercoagulable workup, which was completed in the outpatient setting. We do not have the results of the hypercoagulable workup. We will try to obtain these from the outside labs. 3. History of tobacco abuse. 4. Hypertension. 5. Hyperlipidemia. All questions asked by the patient were answered. Thank you for allowing me to participate in the care of this patient. I will continue to follow this patient along. MD INDIGO Linder/SY , 11:55 PM , 12:31 AM BLAIR
[2017-07-18 04:00] VITALS: BP 114/59; PULSE 104; RESP 18; TEMP 99.4; O2SAT 95
[2017-07-18] MEDS: SODIUM CHLOR 0.9% 1000 ML INJ 1,000 ML IV SCH ×2 (06:27→13:00)
[2017-07-18] MEDS: PANTOPRAZOLE INJ 80 MG in SODIUM CHLORIDE 0.9% INJ 100 ML IV SCH ×2 (06:28→12:36)
[2017-07-18 07:01] LABS: AUTOMATED NEUTROPHIL # 2.4 TH/MM3 (1.8-7.7); BASOPHIL % 0.9 % (0.0-2.0); EOSINOPHIL # 0.2 TH/MM3 (0-0.4); EOSINOPHIL % 4.5 % (0.0-4.0); HEMATOCRIT 22.4 % (35.0-46.0); HEMOGLOBIN 7.2 GM/DL (11.6-15.3); LYMPH % 33.7 % (9.0-44.0); LYMPHOCYTE # 1.6 TH/MM3 (1.0-4.8); MEAN CELL VOLUME 71.2 FL (80.0-100.0); MEAN CORPUSCULAR HEMOGLOBIN 22.7 PG (27.0-34.0); MEAN CORPUSCULAR HGB CONC 31.9 % (32.0-36.0); MEAN PLATELET VOLUME 7.6 FL (7.0-11.0); MONO % 10.8 % (0.0-8.0); MONOCYTE # 0.5 TH/MM3 (0-0.9); NEUT % 50.1 % (16.0-70.0); PLATELET COUNT 328 TH/MM3 (150-450); RED BLOOD COUNT 3.15 MIL/MM3 (4.00-5.30); RED CELL DISTRIBUTION WIDTH 17.2 % (11.6-17.2); WHITE BLOOD COUNT 4.8 TH/MM3 (4.0-11.0)
[2017-07-18 07:14] VITALS: BP 112/52; PULSE 100; RESP 18; TEMP 98.8; O2SAT 96
[2017-07-18 07:31] LABS: BICARBONATE 22.4 MEQ/L (21.0-32.0); CALCIUM 8.2 MG/DL (8.5-10.1); CREATININE 0.76 MG/DL (0.50-1.00)
--- NOTE | 2017-07-18 08:45 | HHI.PR ---
Subjective Remarks Follow up anemia, GI bleed. Patient denies chest pain, dyspnea, nausea, vomiting. Has had frequent bowel movements with prep for colonoscopy. No abdominal pain. No blood noted in stool. Objective Vitals Vital Signs Date Time Temp Pulse Resp B/P (MAP) Pulse Ox O2 Delivery O2 Flow Rate FiO2 07/18/17 07:14 98.8 100 18 112/52 (72) 96 07/18/17 04:00 99.4 104 18 114/59 (77) 95 07/18/17 03:06 21 07/18/17 00:00 99.9 95 18 119/59 (79) 95 07/17/17 20:10 96.7 115 20 99/67 (78) 99 07/17/17 17:43 07/17/17 14:51 97 Room Air 07/17/17 14:39 86 140/67 (91) 101 144/70 (94) 107 131/57 (81) 07/17/17 13:38 97.2 100 20 113/67 (82) 100 I/O 07/17/17 07/17/17 07/17/17 07/18/17 07/18/17 07/18/17 07:00 15:00 23:00 07:00 15:00 23:00 Intake Total 4120 ml Balance 4120 ml Intake Oral 4120 ml # Voids 1 3 3 # Bowel Movements 4 2 Result Diagram: 07/18/17 0602 07/18/17 0602 Objective Remarks General: No acute distress. Heart: Regular rate and rhythm. No murmur. Lungs: Clear to auscultation bilaterally. No wheezes, rales, or rhonchi. Breathing is nonlabored. Abdomen: Soft, nontender, nondistended. Extremities: No lower extremity edema. Psych: Alert and oriented. Neuro: Normal speech. No focal deficits noted. Procedures None Urinary Catheter: No Vascular Central Line Catheter: No A/P Assessment and Plan 1. Anemia: Microcytic, hypochromic. Possibly secondary to GI bleed. H/H decreasing. Appreciate hematology recommendations. 2. GI bleed: Stool is heme positive. Going for EGD/colonoscopy this morning. Appreciate GI recommendations. 3. Peripheral arterial disease with history of femoral stent: Plavix on hold for procedure. Continue statin, aspirin. 4. GERD: Continue PPI. 5. Hypertension: Continue amlodipine. 6. DVT prophylaxis: YANCI Martins. Hold chemical prophylaxis secondary to GI bleed, anemia. Shahbaz Rodriguez MD July 18, 2017 08:45
[2017-07-18] MEDS: PRAVASTATIN SOD 10 MG TAB PO SCH (09:00)
[2017-07-18] MEDS: SODIUM CHLORIDE 0.9% FLUSH 10 ML FLUSH IV FLUSH SCH ×2 (09:00→21:00)
[2017-07-18] MEDS: DOCUSATE SODIUM 50 MG/SENNA 8.6 MG TAB PO SCH ×2 (09:00→21:00)
[2017-07-18] MEDS ORDERED: CLOPIDOGREL 75 MG TAB PO SCH (09:00)
[2017-07-18] MEDS: ASPIRIN EC 81 MG TABEC PO SCH (09:00)
--- NOTE | 2017-07-18 11:24 | GIPROC ---
[facility] [address] [facility]. [facility], [address] EGD PROCEDURE REPORT EXAM DATE: 07/18/2017 PATIENT NAME: Suzi Herrera MR #: [id number] BIRTHDATE: 1945 ATTENDING: Molly Goldman MD ORDER #: [id number] MANAGER AGRICULTURE: Aleisha Chavez and Radha Cervantes STATUS: inpatient INDICATIONS: The patient is a 71 yr old female here for an EGD due to iron deficiency anemia PROCEDURE PERFORMED: EGD w/ biopsy MEDICATIONS: None and Per Anesthesia. TOPICAL ANESTHETIC: CONSENT: The patient understands the risks and benefits of the procedure and understands that these risks include, but are not limited to: sedation, allergic reaction, infection, perforation and/or bleeding. Alternative means of evaluation and treatment include, among others: physical exam, x-rays, and/or surgical intervention. The patient elects to proceed with this endoscopic procedure. medical equipment was checked for proper function. Hand hygiene and appropriate measures for infection prevention was taken. After the risks, benefits and alternatives of the procedure were thoroughly explained, Informed consent was verified, confirmed and timeout was successfully executed by the treatment team. The patient was anesthetized with topical anesthesia and the EC-[id number] (Pedi C) endoscope was introduced through the mouth and advanced to the second portion of the duodenum. Retroflexed views revealed a hiatal hernia The gastroscope was then slowly withdrawn and removed. 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 The stricture was easily traversable. A biopsy was performed using cold forceps. Sample sent for histology. STOMACH: There was erythematous moderate gastritis in the gastric antrum. A biopsy was performed using cold forceps. Sample sent for histology. DUODENUM: The duodenal mucosa appeared normal in the bulb and second portion of the duodenum. ADVERSE EVENTS: There were no complications. IMPRESSIONS: 1. There was a short stricture in the distal esophagus; biopsy was performed 2. There was erythematous gastritis in the gastric antrum; biopsy was performed 3. Normal duodenal mucosa in the bulb and second portion of the duodenum 4. Retroflexed views revealed a hiatal hernia RECOMMENDATIONS: 1. Await biopsy results. Biopsy results will not be ready for 7-10 days. If you don't hear from us in two weeks, call our office for biopsy results. 2. Anti-reflux regimen 3. Continue PPI PATIENT CONDITION: stable DISPOSITION: Inpatient REPEAT EXAM: Return 1 year EGD pending biopsy results Molly Goldman MD eSigned: Molly Goldman MD 07/18/2017 11:24 AM cc: PATIENT NAME: Suzi Herrera Lottie MR#: [id number]
--- NOTE | 2017-07-18 11:27 | GIPROC ---
[facility] [address] [facility]. [facility], [address] COLONOSCOPY PROCEDURE REPORT EXAM DATE: 07/18/2017 PATIENT NAME: Suzi Herrera MR #: [id number] BIRTHDATE: 1945 ENDOSCOPIST: Molly Goldman MD ORDER #: [id number] [employer] SUPERVISOR: Aleisha Chavez and Radha Cervantes STATUS: inpatient INDICATIONS: The patient is a 71 yr old female here for a colonoscopy due to iron deficiency anemia PROCEDURE PERFORMED: Colonoscopy with ablation Colonoscopy with biopsy MEDICATIONS: None and Per Anesthesia. PREP QUALITY: The [place] Bowel Prep Score was Right colon 3, Mid colon 2, and Left colon 3. Total = 8. PREP TYPE:GoLytely ESTIMATED BLOOD LOSS: None CONSENT: The patient understands the risks and benefits of the procedure and understands that these risks include, but are not limited to: sedation, allergic reaction, infection, perforation and/or bleeding. Alternative means of evaluation and treatment include, among others: physical exam, x-rays, and/or surgical intervention. The patient elects to proceed with this endoscopic procedure. medical equipment was checked for proper function. Hand hygiene and appropriate measures for infection prevention was taken. After the risks, benefits and alternatives of the procedure were thoroughly explained, Informed consent was verified, confirmed and timeout was successfully executed by the treatment team. A digital exam revealed external hemorrhoids The Pentax EC-[id number] endoscope was introduced through the anus and advanced to the cecum, which was identified by both the appendix and ileocecal valve. The instrument was then slowly withdrawn as the colon was fully examined. 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 Destruction of tissue via ablation was attempted. Bleeding from maneuver treated with cautery. Argon plasma coagulation was used. Care was given to ensure that the lumen was suctioned well. 4 mm angiodysplastic lesion was found in the ascending colon. Destruction of tissue via ablation was attempted. Bleeding from maneuver treated with cautery. Argon plasma coagulation was used. Care was given to ensure that the lumen was suctioned well. A polypoid shaped sessile polyp ranging between 3-5mm in size was found in the rectum. A biopsy was performed using cold forceps. Retroflexed views revealed internal hemorrhoids and Retroflexed views revealed small internal hemorrhoids The scope was then completely withdrawn from the patient and the procedure terminated. PROCEDURE WITHDRAWAL TIME:8minutes ADVERSE EVENTS: There were no complications. IMPRESSIONS: 1. Medium sized angiodysplastic lesion and in the ascending colon; Destruction of tissue via ablation was attempted 2. 4mm angiodysplastic lesion and in the ascending colon; Destruction of tissue via ablation was attempted 3. A sessile polyp ranging between 3-5mm in size was found in the rectum; biopsy was performed using cold forceps 4. Retroflexed views revealed internal hemorrhoids 5. Retroflexed views revealed small internal hemorrhoids 6. Revealed external hemorrhoids RECOMMENDATIONS: 1. Await biopsy results. Biopsy results will not be ready for 7-10 days. If you don't hear from us in two weeks, call our office for results. 2. Yearly hemoccult 3. Xray for Small bowel follow through RECALL: Return 3 years Colonoscopy, pending biopsy results Molly Goldman MD eSigned: Molly Goldman MD 07/18/2017 11:27 AM cc: PATIENT NAME: Suzi Herrera MR#: [id number]
[2017-07-18] MEDS ORDERED: LIDOCAINE HCL 1% PF 5 ML SYRINGE OTHER ONE (12:00)
[2017-07-18] MEDS ORDERED: MAGNESIUM CITRATE SOLN 300 ML BTL PO ONE ×2 (12:00→18:00)
[2017-07-18] MEDS ORDERED: PROPOFOL 200 MG/20 ML AMP IV ONE (12:00)
--- NOTE | 2017-07-18 14:06 | EKG ---
Date Performed: 07/17/2017 Time Performed: 23:18:14 PTAGE: 71 years EKG: Sinus rhythm NORMAL ECG NO PREVIOUS TRACING DOCTOR: Chico Tolliver Interpretating Date/Time 07/20/2017 07:45:54
[2017-07-18 14:19] VITALS: BP 120/67; PULSE 91; RESP 19; TEMP 96.8; O2SAT 97
--- NOTE | 2017-07-18 15:07 | RADRPT ---
EXAM DATE: 07/18/2017 2:19 PM EDT AGE/SEX: 71 years / Female INDICATIONS: Anemia. CLINICAL DATA: This is the patient's initial encounter. Patient reports that signs and symptoms have been present for 2 days and indicates a pain score of 0/10. MEDICAL/SURGICAL HISTORY: . Anemia. Gastritis. Hiatal hernia. . None COMPARISON: No prior [place] exams available for comparison. FLUORO TIME: 0.5 IMAGE COUNT: 12 CONTRAST: Oral contrast. FINDINGS: A preliminary film is unremarkable. The stomach is grossly unremarkable. Examination of the small bowel demonstrates normal mucosal pattern involving the jejunum and ileum. There is no evidence of mass or obstruction. No intraluminal filling defects are identified. Small bowel transit time is normal at 60 minutes. Fluoroscopy of the abdomen and terminal ileum demonstrat es no abnormality. CONCLUSION: Unremarkable exam. Electronically signed by: Austin Andrea MD 07/18/2017 3:05 PM EDT
[2017-07-18 15:24] LABS: HEMATOCRIT 25.6 % (35.0-46.0)
[2017-07-18] MEDS: BISACODYL EC 5 MG TABEC PO SCH ×2 (18:00→21:00)
[2017-07-18 19:52] VITALS: O2SAT 97
[2017-07-18 19:56] VITALS: BP 114/67; PULSE 97; RESP 16; TEMP 98.5; O2SAT 96
[2017-07-18] MEDS: PANTOPRAZOLE SOD 40 MG DELAYED RELEASE TAB PO SCH (21:38)
[2017-07-19] VITALS (11 sets, daily range): BP systolic 99–136; BP diastolic 56–72; PULSE 73–94; RESP 16–20; TEMP 97.9–98.8; O2SAT 93–99
[2017-07-19 05:18] LABS: AUTOMATED NEUTROPHIL # 2.3 TH/MM3 (1.8-7.7); EOSINOPHIL # 0.3 TH/MM3 (0-0.4); EOSINOPHIL % 6.2 % (0.0-4.0); HEMATOCRIT 22.9 % (35.0-46.0); HEMOGLOBIN 7.3 GM/DL (11.6-15.3); LYMPH % 33.4 % (9.0-44.0); LYMPHOCYTE # 1.6 TH/MM3 (1.0-4.8); MEAN CELL VOLUME 70.8 FL (80.0-100.0); MEAN CORPUSCULAR HEMOGLOBIN 22.4 PG (27.0-34.0); MEAN CORPUSCULAR HGB CONC 31.7 % (32.0-36.0); MEAN PLATELET VOLUME 7.4 FL (7.0-11.0); MONO % 10.7 % (0.0-8.0); MONOCYTE # 0.5 TH/MM3 (0-0.9); NEUT % 48.7 % (16.0-70.0); PLATELET COUNT 333 TH/MM3 (150-450); RED BLOOD COUNT 3.23 MIL/MM3 (4.00-5.30); RED CELL DISTRIBUTION WIDTH 17.5 % (11.6-17.2); WHITE BLOOD COUNT 4.7 TH/MM3 (4.0-11.0)
[2017-07-19] MEDS: SODIUM CHLOR 0.9% 1000 ML INJ 1,000 ML IV SCH ×3 (06:03→19:00)
--- NOTE | 2017-07-19 08:37 | HHI.GIFU ---
Subjective Remarks Pt anxious to go home No GI complaints at this time States no BM since GI procedures Denies nausea, vomiting, abdominal pain Has only had full liquids (Mili Coelho) Objective Vitals I&O Vital Signs Date Time Temp Pulse Resp B/P (MAP) Pulse Ox O2 Delivery O2 Flow Rate FiO2 07/19/17 07:58 98.1 89 20 123/72 (89) 95 07/19/17 03:55 97.9 92 16 119/69 (86) 93 07/19/17 01:06 98.8 89 16 116/59 (78) 95 07/18/17 19:56 98.5 97 16 114/67 (83) 96 07/18/17 19:52 97 07/18/17 14:19 96.8 91 19 120/67 (84) 97 07/18/17 11:33 97.3 84 18 121/58 (79) 95 I/O 07/18/17 07/18/17 07/18/17 07/19/17 07/19/17 07/19/17 07:00 15:00 23:00 07:00 15:00 23:00 Intake Total 400 ml Balance 400 ml Other 400 ml # Voids 3 # Bowel Movements 2 Laboratory Laboratory Tests Test 07/18/17 14:58 07/19/17 04:30 Hemoglobin 8.0 7.3 Hematocrit 25.6 22.9 White Blood Count 4.7 Red Blood Count 3.23 Mean Corpuscular Volume 70.8 Mean Corpuscular Hemoglobin 22.4 Mean Corpuscular Hemoglobin Concent 31.7 Red Cell Distribution Width 17.5 Platelet Count 333 Mean Platelet Volume 7.4 Neutrophils (%) (Auto) 48.7 Lymphocytes (%) (Auto) 33.4 Monocytes (%) (Auto) 10.7 Eosinophils (%) (Auto) 6.2 Basophils (%) (Auto) 1.0 Neutrophils # (Auto) 2.3 Lymphocytes # (Auto) 1.6 Monocytes # (Auto) 0.5 Eosinophils # (Auto) 0.3 Basophils # (Auto) 0.0 CBC Comment DIFF FINAL Differential Comment Imaging Last Impressions Small Bowel X-Ray 07/18/17 0000 Signed Impressions: CONCLUSION: Unremarkable exam. Physical Exam HEENT: Normocephalic; atraumatic CHEST: Even/unlabored CARDIAC: RRR ABDOMEN: Soft, nondistended, nontender; bowel sounds active EXTREMITIES: No clubbing, cyanosis, or edema. SKIN: Pale GIG TENDER: Alert and oriented times three. (Mili Coelho) Assessment and Plan Plan Assessment: - Anemia- microcytic, hypochromic with Heme (+) stools done at bedside by ER provider Pt denies history of anemia, however was told by her PCP a few weeks ago to start taking iron supplements which she reports has not been doing. Denies previous blood transfusion. Last colonoscopy 4-5 years ago and states normal exam. Has never had EGD Complaining of: Acid reflux (but well controlled with Ranitidine and Protonix at home) Occasional knot sensation in epigastric area worse with certain movements, and abdominal bloating after meals Denies: Nausea, vomiting, abdominal pain, constipation, diarrhea, hematochezia , melena. Risk factors: Occasional ETOH, smokes E-cigarettes On Plavix and ASA for history of femoral stent- S/P occlusion and second one placed [address] 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 Erythematous gastritis in the gastric antrum, biopsy. Normal duodenal mucosa in the bulb and second portion of the duodenum. Hiatal hernia. Colonoscopy --> Medium sized angiodysplastic lesion in the ascending colon, destruction of the tissue via ablation was attempted. 4 mm angiodysplastic lesions in the ascending colon, destruction of the tissue via ablation was attempted. Sessile polyp ranging between 3-5 mm in size was found in the rectum, biopsy. Internal and external hemorrhoids. Small Bowel follow through --> Unremarkable exam (07/19) Pt with no GI complaints at this time. Exams as noted above. H/H remains stable over night. Pt has only had full liquids. Advance diet, if tolerating OK to DC from a GI standpoint. Discussed with Dr. Rodriguez and RN Plan: Advance diet EGD and colon biopsies pending Capsule endoscopy outpatient Protonix If tolerating regular diet OK to DC from a GI standpoint Have pt follow up in office in 1 week Pt has been seen and examined by myself and Dr. Goldman and this note is written on his behalf (Mili Coelho) Physician Comments Seen and examined with SHAHRIAR, no bleeding. SBFT -ve. AVMs on colonoscopy. Dc home with gi fu please. (Molly Goldman MD) Mili Coelho July 19, 2017 08:37 Molly Goldman MD July 19, 2017 12:48
[2017-07-19] MEDS: DOCUSATE SODIUM 50 MG/SENNA 8.6 MG TAB PO SCH ×2 (09:00→21:00)
[2017-07-19] MEDS: SODIUM CHLORIDE 0.9% FLUSH 10 ML FLUSH IV FLUSH SCH ×2 (09:00→21:00)
[2017-07-19] MEDS: PRAVASTATIN SOD 10 MG TAB PO SCH (09:00)
[2017-07-19] MEDS: ASPIRIN EC 81 MG TABEC PO SCH (09:01)
[2017-07-19] MEDS: PANTOPRAZOLE SOD 40 MG DELAYED RELEASE TAB PO SCH ×2 (09:01→21:41)
[2017-07-19] MEDS ORDERED: PANT40TA3 PO (14:49)
--- NOTE | 2017-07-19 14:49 | HHI.DCPOC ---
Discharge Care Plan Diagnosis: (1) Anemia (2) GI bleed (3) Gastritis (4) Internal and external hemorrhoids without complication (5) AVM (arteriovenous malformation) of colon Goals to Promote Your Health * To prevent worsening of your condition and complications * To maintain your health at the optimal level Directions to Meet Your Goals Take your medications as prescribed Follow your dietary instruction Follow activity as directed Keep your appointments as scheduled Take your immunizations and boosters as scheduled If your symptoms worsen call your PCP, if no PCP go to Urgent Care Center or Emergency Room Smoking is Dangerous to Your Health. Avoid second hand smoke Call the 24-hour hour crisis hotline for domestic abuse at Alma Saeed PA-C July 19, 2017 2:49 pm
[2017-07-19] MEDS ORDERED: FERR325T18 PO (14:54)
--- NOTE | 2017-07-19 15:04 | HHI.PR ---
Subjective Remarks Follow up anemia, GI bleed. Patient has not had any further bleeding. Wants to go home. She feels fatigued. Objective Vitals Vital Signs Date Time Temp Pulse Resp B/P (MAP) Pulse Ox O2 Delivery O2 Flow Rate FiO2 07/19/17 14:03 96 21 07/19/17 11:17 98.6 89 20 103/60 (74) 97 07/19/17 07:58 98.1 89 20 123/72 (89) 95 07/19/17 03:55 97.9 92 16 119/69 (86) 93 07/19/17 01:06 98.8 89 16 116/59 (78) 95 07/18/17 19:56 98.5 97 16 114/67 (83) 96 07/18/17 19:52 97 I/O 07/18/17 07/18/17 07/18/17 07/19/17 07/19/17 07/19/17 06:59 14:59 22:59 06:59 14:59 22:59 Intake Total 400 ml Balance 400 ml Other 400 ml # Voids 3 # Bowel Movements 2 Result Diagram: 07/19/17 0430 07/18/17 0602 Imaging Last Impressions Small Bowel X-Ray 07/18/17 0000 Signed Impressions: CONCLUSION: Unremarkable exam. Objective Remarks General: No acute distress. Heart: Regular rate and rhythm. No murmur. Lungs: Clear to auscultation bilaterally. No wheezes, rales, or rhonchi. Breathing is nonlabored. Abdomen: Soft, nontender, nondistended. Extremities: No lower extremity edema. Psych: Alert and oriented. Neuro: Normal speech. No focal deficits noted. Procedures None Urinary Catheter: No Vascular Central Line Catheter: No A/P Assessment and Plan 1. Anemia: Microcytic, hypochromic. Possibly secondary to GI bleed. H/H slightly lower today, but no active bleeding noted. Appreciate hematology recommendations. 2. GI bleed: Stool is heme positive. S/P EGD/colonoscopy. Appreciate GI recommendations. 3. Peripheral arterial disease with history of femoral stent: Plavix restarted. Continue statin, aspirin. 4. GERD: Continue PPI. 5. Hypertension: Continue amlodipine. 6. DVT prophylaxis: SCDs, YANCI lazo. Discharge Planning Discharge home in stable condition. Follow up with PCP, hematology. Heart healthy diet. Activity as tolerated. Off work until Sunday. Shahbaz Rodriguez MD July 19, 2017 15:04
[2017-07-19] MEDS ORDERED: FUROSEMIDE 20 MG/2 ML VIAL IV PUSH ONE (15:30)
[2017-07-19] MEDS ORDERED: SODIUM CHLOR 0.9% 250 ML INJ 250 ML IV ONE (15:30)
[2017-07-19] MEDS ORDERED: diphenhydrAMINE HCL 25 MG CAP PO ONE (22:45)
[2017-07-19 23:52] LABS: HEMATOCRIT 32.3 % (35.0-46.0); HEMOGLOBIN 10.6 GM/DL (11.6-15.3)
== END 2017-07-20 04:38 | disposition home or self-care (01) ==
LOC: NEPD 12:52 → NEDA 16:05 → NEPGCP 18:18
PROVIDERS: ADMIT Family Medicine; ATTEND Family Medicine
DX: D50.0 Iron deficiency anemia secondary to blood loss (chronic) (principal); K29.70 Gastritis, unspecified, without bleeding; K55.20 Angiodysplasia of colon without hemorrhage; K64.4 Residual hemorrhoidal skin tags; K64.8 Other hemorrhoids; K22.2 Esophageal obstruction; K92.2 Gastrointestinal hemorrhage, unspecified; R05 Cough; K44.9 Diaphragmatic hernia without obstruction or gangrene; I10 Essential (primary) hypertension; E78.00 Pure hypercholesterolemia, unspecified; I73.9 Peripheral vascular disease, unspecified; K21.9 Gastro-esophageal reflux disease without esophagitis; E55.9 Vitamin D deficiency, unspecified; F17.290 Nicotine dependence, other tobacco product, uncomplicated; Z79.899 Other long term (current) drug therapy; Z79.82 Long term (current) use of aspirin; Z79.02 Long term (current) use of antithrombotics/antiplatelets
CPT/HCPCS: 00731; 36430; 43239; 74250; 76937; 80048; 81002; 82728; 83540; 83550; 85014; 85018; 85025; 85610; 86078; 86850; 86880; 86900; 86901; 86920; 88305; 88312; 93005; 96361; 96365; 96366; 96375; 99285; C9113; G0378; J1940; J7030; J7050; P9016